=== PATIENT | female | born 1995 | race Caucasian/White ===

== ENCOUNTER 2024-10-18 12:18 | Emergency (ER) | payer MEDICAID ==
[~2024-10-18] VITALS: Ht 165.1 cm; Wt 70.0 kg
[2024-10-18 12:19] VITALS: O2SAT 96
[2024-10-18] MEDS ORDERED: LEVO25TA2 PO (12:24)
[2024-10-18] MEDS: METHYLPREDNISOLONE SOD SUCC 125MG/2ML (ACT-O-VIAL) IV ONE (12:48)
[2024-10-18] MEDS: FAMOTIDINE 20MG/2ML VIAL IV ONE (12:48)
[2024-10-18] MEDS ORDERED: B50 MT (14:11)
[2024-10-18 14:58] VITALS: BP 120/72; PULSE 94; RESP 18; TEMP 37.4; O2SAT 100
== END 2024-10-18 14:53 | disposition home or self-care (01) ==
LOC: ER 14:47
DX: T78.40XA Allergy, unspecified, initial encounter (principal); E03.9 Hypothyroidism, unspecified; Z79.890 Hormone replacement therapy; X58.XXXA Exposure to other specified factors, initial encounter
CPT/HCPCS: 99284; 96374; 96375; J2919; J3490